=== PATIENT | female | born 1965 | race American Indian/Alaskan Native ===

== ENCOUNTER 2019-01-11 14:36 | Outpatient (CLI) | payer BC ==
--- NOTE | 2019-01-12 08:11 | Mammography Report ---
BILATERAL DIGITAL SCREENING MAMMOGRAM WITH CAD INDICATION: Screening. COMPARISONS: 06/10/2012 FINDINGS: Craniocaudal and mediolateral oblique views of both breasts were obtained using 2-D digital acquisition. In addition to standard review, the examination was analyzed for possible abnormalities using a computer-assisted detection device (iCAD). The breast tissue is heterogeneously dense, which may obscure small masses. Bilateral asymmetries require additional imaging. IMPRESSION: Bilateral asymmetries requiring additional imaging. Recommend recall for bilateral ML and spot magnif ication views and bilateral breast ultrasound if needed. BI-RADS CATEGORY 0: INCOMPLETE - NEED ADDITIONAL IMAGING EVALUATION AND/OR PRIOR MAMMOGRAMS FOR COMP ARISON Information is entered into a reminder system for a target due date for the next mammogram. The resul ts and recommendations were sent to the patient by mail. Signer Name: Justice Kincaid MD Signed: 01/12/2019 8:06 AM Workstation Name: [id number]
== END 2019-01-11 14:37 | disposition home or self-care (01) ==
LOC: MAMMO 14:36
PROVIDERS: ATTEND Family Medicine Adult Medicine
DX: Z12.31 Encounter for screening mammogram for malignant neoplasm of breast (principal)
CPT/HCPCS: 77067

== ENCOUNTER 2019-02-02 08:03 | Outpatient (CLI) | payer BC ==
--- NOTE | 2019-02-02 08:54 | Mammography Report ---
BILATERAL DIGITAL DIAGNOSTIC MAMMOGRAM INDICATION: Recall for bilateral asymmetries. TECHNIQUE: Digital bilateral mammographic imaging were performed. COMPARISON: 01/11/2019 FINDINGS: Breast Density: The breasts are heterogeneously dense, which may obscure small masses. Additional bilateral mammographic views were performed and are negative. Satisfactory effacement of a symmetries. There is no evidence of dominant mass, suspicious calcifications or architectural distort ion in either breast. IMPRESSION: No mammographic evidence of malignancy. BI-RADS Category 1: Negative. Recommend routine screening mammography in one year. A "normal" or negative report should not discourage follow up or biopsy of a clinically significant f inding. A written summary of these findings will be mailed to the patient. The patient will be entered into a mammography reporting system which will generate a reminder letter for the patient's next appointmen t at the appropriate interval. FURTHER INFORMATION: According to the [employer], yearly mammograms are recommend ed starting at age 40 and continuing as long as a woman is in good health. Breast MRI is recommended for women with an approximately 20-25% or greater lifetime risk of breast cancer, including women wi th a strong family history of breast or ovarian cancer and women who have been treated for Hodgkin's disease. Signer Name: Justice Kincaid MD Signed: 02/02/2019 8:49 AM Workstation Name: [id number]
== END 2019-02-02 08:04 | disposition home or self-care (01) ==
LOC: MAMMO 08:03
PROVIDERS: ATTEND Family Medicine Adult Medicine
DX: R92.8 Other abnormal and inconclusive findings on diagnostic imaging of breast (principal)
CPT/HCPCS: 77066